=== PATIENT | female | born 1970 | race Caucasian/White ===

== ENCOUNTER 2020-11-10 09:24 | Day surgery (SDC) | payer BC ==
[2020-11-08 09:26] VITALS: BMI 31.1
[2020-11-10] MEDS ORDERED: LIDOCAINE HCL 2% (20ML MULTI-DOSE VIAL) ONE (10:50)
[2020-11-10] MEDS ORDERED: BACITRACIN 15 GM TUBE TOPICAL OINTMENT ONE (10:58)
[2020-11-10] MEDS ORDERED: MIDAZOLAM HCL 2 MG/2 ML SINGLE DOSE VIAL ONE (11:05)
[2020-11-10] MEDS ORDERED: PROPOFOL 20 ML ONE (11:05)
[2020-11-10] MEDS ORDERED: ROCURONIUM BROMIDE 50 MG/5 ML SYRINGE ONE (11:05)
[2020-11-10] MEDS ORDERED: fentaNYL CITRATE 250 MCG/5 ML VIAL ONE (11:05)
[2020-11-10] MEDS ORDERED: BUPIVACAINE LIPOSOME/PF (EXPAREL) 266 MG/20 ML VIAL ONE (11:42)
[2020-11-10] MEDS ORDERED: BUPIVACAINE HCL/PF 0.25% (2.5MG/ML) 10 ML VIAL ONE ×2 (12:35→12:37)
[2020-11-10] MEDS ORDERED: NITROGLYCERIN 2% OINTMENT - 1GM PACKET TD ONE ×4 (13:50→14:25)
[2020-11-10] MEDS ORDERED: ONDANSETRON 4 MG/2 ML VIAL ONE (14:22)
[2020-11-10] MEDS ORDERED: KETOROLAC TROMETHAMINE 30 MG/1 ML VIAL ONE (14:22)
[2020-11-10] MEDS ORDERED: ceFAZolin SODIUM 1 GM VIAL ONE ×2 (14:22)
[2020-11-10] MEDS ORDERED: DEXAMETHASONE SOD PHOSPHATE 4 MG/1 ML VIAL ONE (14:22)
[2020-11-10] MEDS ORDERED: GLYCOPYRROLATE 0.2 MG/1 ML VIAL ONE (14:22)
[2020-11-10] MEDS ORDERED: NEOSTIGMINE METHYLSULFATE 0.5 MG/1 ML - 10 ML MDV ONE (14:22)
[2020-11-10] MEDS ORDERED: ONDANSETRON 4 MG/2 ML VIAL IVPUSH PRN ×2 (14:41→14:42)
[2020-11-10] MEDS ORDERED: ACETAMINOPHEN 325 MG TABLET (FP) PO PRN (14:42)
[2020-11-10] MEDS ORDERED: LACTATED RINGERS SOLUTION 1,000 ML IV SCH (14:45)
[2020-11-10] MEDS: PROMETHAZINE HCL 25 MG/1 ML VIAL IVPUSH PRN ×3 (14:54→15:52)
[2020-11-10] MEDS ORDERED: ACETAMINOPHEN INJECTION 100 ML IVPB ONE (15:10)
[2020-11-10] MEDS ORDERED: ACETAMINOPHEN 1000 MG/100 ML VIAL (NON FORMULARY) IVPB ONE (15:13)
[2020-11-10] MEDS: CEFAZOLIN 1 GM/D5W 1 GM/50 ML BAG IVPB SCH ×2 (18:56→21:56)
[2020-11-11] MEDS: CEFAZOLIN 1 GM/D5W 1 GM/50 ML BAG IVPB SCH ×2 (04:07→09:22)
[2020-11-11] MEDS ORDERED: ACETAMINOPHEN 325 MG TABLET (FP) ONE (06:06)
[2020-11-11] MEDS: oxyCODONE HCL 5 MG TABLET PO PRN ×2 (06:07→11:57)
[2020-11-11 09:21] VITALS: PULSE 72
[2020-11-11 13:26] VITALS: BP 104/50; TEMP 98.8
== END 2020-11-11 13:31 | disposition home or self-care (01) ==
LOC: FASU 09:24 → FM/S 16:31 → FASU 11-11 13:31
PROVIDERS: ATTEND Plastic Surgery
PROC: 0JDC3ZZ Extraction of Pelvic Region Subcutaneous Tissue and Fascia, Percutaneous Approach (ICD-10-PCS; 2020-11-10)
PROC: 0JB80ZZ Excision of Abdomen Subcutaneous Tissue and Fascia, Open Approach (ICD-10-PCS; principal; 2020-11-10 12:10)
DX: E65 Localized adiposity (principal); M79.3 Panniculitis, unspecified; L30.4 Erythema intertrigo
CPT/HCPCS: 94760; J0131